=== PATIENT | female | born 1975 | race Two or more races ===

== ENCOUNTER 2021-10-19 16:30 | Emergency (ER) | payer OTHER ==
[~2021-10-19] VITALS: Ht 157.5 cm; Wt 71.7 kg
[2021-10-19 16:30] VITALS: BP 145/83
[2021-10-19] MEDS ORDERED: CIP03OS LEFTEYE (18:05)
== END 2021-10-19 18:26 | disposition home or self-care (01) ==
LOC: ER 16:30
DX: H10.9 Unspecified conjunctivitis (principal); Z90.710 Acquired absence of both cervix and uterus; Z79.2 Long term (current) use of antibiotics